=== PATIENT | male | born 1985 | race Caucasian/White ===

== ENCOUNTER 2018-06-15 23:41 | Emergency (ER) | payer OTHER ==
[2018-06-15 23:47] VITALS: BP 125/77; PULSE 80; RESP 18; TEMP 98.2
--- NOTE | 2018-06-15 23:56 | ED ---
General Adult HPI - General Chief complaint: Chest Pain Stated complaint: Chest Pain Time Seen by Provider: 06/15/18 23:55 Source: patient Mode of arrival: ambulatory Limitations: no limitations - History of Present Illness Initial comments: Stevenson is a previously healthy [id number] male who presents the emergency department today for evaluation of right shoulder and right-sided chest pain. Patient reports that earlier in the week he was doing some pretty heavy lifting and drywalling, he states that this evening he attempted to get out from a chair and when he pushed himself up he had pain and soreness in his right side of his chest specifically in the pectoralis muscle. Pain is worse with any movement of the shoulder palpation of the muscle. Patient didn't try any medications or treatment prior to arrival he came to the ER for further evaluation. Patient has no history of heart disease no history of pulmonary disease. - Related Data Previous Rx's Medication Instructions Recorded LORazepam [Ativan] 1 mg PO TID PRN #15 tab 05/14/15 Ibuprofen [Motrin] 800 mg PO TID #30 tab 06/16/18 Methocarbamol [Robaxin-750] 750 mg PO TID #30 tablet 06/16/18 Allergies Allergy/AdvReac Type Severity Reaction Status Date / Time No Known Allergies Allergy Verified 06/15/18 23:47 Review of Systems ROS Statement: Those systems with pertinent positive or pertinent negative responses have been documented in the HPI. ROS Other: All systems not noted in ROS Statement are negative. Past Medical History Past Medical History: Seizure Disorder Additional Past Medical History / Comment(s): ETOH abuse History of Any Multi-Drug Resistant Organisms: None Reported Additional Past Surgical History / Comment(s): RIGHT WRIST SURGERY Past Psychological History: No Psychological Hx Reported Smoking Status: Current every day smoker Past Alcohol Use History: Heavy Past Drug Use History: Marijuana General Exam - General Exam Comments Initial Comments: Physical Exam GENERAL: Patient is well-developed and well-nourished. Patient is nontoxic and well- hydrated and is in no distress. HENT: Normocephalic, Atraumatic. 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 No audible rales rhonchi or wheezing was noted. CARDIOVASCULAR: There is a regular rate and rhythm without any murmurs gallops or rubs. ABDOMEN: Soft and nontender with normal bowel sounds. SKIN: Skin is clear with no lesions or rashes and otherwise unremarkable. : Deferred NEUROLOGIC: Patient is alert and oriented x3. Moving all extremities spontaneously MUSCULOSKELETAL: Normal extremities with adequate strength and full range of motion. No lower extremity swelling or edema. No calf tenderness. Tenderness to palpation of the right pectoralis muscle, pain with abduction of the arm and's resistance PSYCHIATRIC: Normal psychiatric evaluation. Limitations: no limitations Limitations: no limitations Course Vital Signs 06/15/18 23:43 Temperature 98.2 F Pulse Rate 80 Respiratory 18 Rate Blood Pressure 125/77 O2 Sat by Pulse 99 Oximetry EKG Findings - EKG Comments: EKG Findings:: EKG obtained at 12:16 AM, rate is 77 rhythm is sinus there is a normal axis there are normal intervals, WA 166, QRS 80, QTC is 391. There are no acute ST elevations or depressions is no evidence of acute ischemia Medical Decision Making - Medical Decision Making Patient was seen and evaluated history is obtained from the patient and son history and physical exam are concerning for musculoskeletal etiology of right- sided chest wall discomfort. I suspect the patient has a muscle strain due to overuse well pain drywall EKG was nonischemic, chest x-ray no acute findings patient will be treated with anti-inflammatories and muscle relaxers patient will be discharged home with Robaxin and Motrin. All questions pertaining to care were answered the best my ability return parameters were discussed patient was discharged home in stable condition. Disposition Clinical Impression: Atypical chest pain, Strain of right pectoralis muscle Disposition: HOME SELF-CARE Condition: Stable Instructions (If sedation given, give patient instructions): Muscle Strain (DC) Prescriptions: Ibuprofen [Motrin] 800 mg PO TID #30 tab Methocarbamol [Robaxin-750] 750 mg PO TID #30 tablet Is patient prescribed a controlled substance at d/c from ED?: No Referrals: Kirk Stahl MD [Primary Care Provider] - 1-2 days
--- NOTE | 2018-06-16 01:03 | XR ---
EXAM: XR Chest, 2 Views CLINICAL HISTORY: Pain TECHNIQUE: Frontal and lateral views of the chest. COMPARISON: 01/12/2015 FINDINGS: Lungs: No focal consolidation. Pleural space: No pleural effusion identified. No pneumothorax. Heart: Unremarkable. No cardiomegaly. Mediastinum: The trachea is midline. Mediastinal contours are stable and within normal limits. Bones/joints: Unremarkable. IMPRESSION: No focal consolidation or acute cardiopulmonary process identified.
[2018-06-16] MEDS ORDERED: KETOROLAC 30 MG/ML 1 ML VIAL IM STA (01:23)
[2018-06-16] MEDS ORDERED: DIAZEPAM 5 MG TAB PO STA (01:23)
== END 2018-06-16 01:43 | disposition home or self-care (01) ==
LOC: EC 23:41
DX: S29.011A Strain of muscle and tendon of front wall of thorax, initial encounter (principal); X50.0XXA Overexertion from strenuous movement or load, initial encounter; F17.200 Nicotine dependence, unspecified, uncomplicated
CPT/HCPCS: 93005; 71046; 99283; 96372; J1885

== ENCOUNTER → 2022-01-08 | Outpatient (CLI) | payer OTHER ==
[2022-01-08 18:44] LABS: Basophils # (A) 0.07 X 10*3/uL (0.00-0.10); Basophils % (A) 0.8 %; Eosinophils # (A) 0.19 X 10*3/uL (0.04-0.35); Eosinophils % (A) 2.2 %; HCT 41.2 % (39.6-50.0); HGB 13.6 g/dL (13.0-17.0); Immature Grans, Automated 0.6 %; Lymphocytes # (A) 2.44 X 10*3/uL (0.90-5.00); Lymphocytes % (A) 27.6 %; MCH 26.9 pg (27.0-32.0); MCV 81.4 fL (80.0-97.0); Mean Platelet Volume 9.6 fL (9.5-12.2); Monocytes # (A) 0.64 X 10*3/uL (0.20-1.00); Monocytes % (A) 7.2 %; NRBC Per 100 WBC 0 /100 WBCS (0.0-0.0); Neutrophils # (A) 5.44 X 10*3/uL (1.80-7.70); Neutrophils % (A) 61.6 %; Platelet Count 368 X 10*3/uL (140-440); RBC 5.06 X 10*6/uL (4.40-5.60); RDW 13.5 % (11.5-14.5); WBC 8.83 X 10*3/uL (4.50-10.00)
== END | disposition home or self-care (01) ==
LOC: LABWHC1 11:14
PROVIDERS: ATTEND Podiatrist Foot & Ankle Surgery
DX: M10.9 Gout, unspecified (principal)
CPT/HCPCS: 36415; 84550; 85025